=== PATIENT | female | born 1950 | race Caucasian/White ===

== ENCOUNTER 2019-07-02 06:37 | Emergency (ER) | payer OTHER ==
[2019-07-02 07:23] VITALS: BMI 25.9
--- NOTE | 2019-07-02 07:51 | PDOC ---
History of Present Illness - General Chief Complaint: Pain, Acute Stated Complaint: ABD PAIN/VOMITTING Time Seen by Provider: 07/02/19 07:43 History Source: Patient Exam Limitations: Language Barrier - History of Present Illness Initial Comments: Hx limited patient speaks [place]an - [employer] underliner number: [id number] Fabiola Begum is a 68 yo F w a hx of "nervous Colitis" who presents to the [facility] er bc last night she experienced 4 episodes of yellow and green vomiting, over ten episodes of diarrhea and a strong pain in the left side of her abdomen. First the diarrhea occurred, then the abdominal pain, and then the vomiting. She states her abdominal pain is rated 9/10. She describes the pain as a strong pain which started last night but still hurts. Patient endorses constant chills from the pain. She has not been able to eat or drink since last night. Denies fevers, chest pain, SOB, difficulty breathing, headache, dysuria, frequency, or urgency. PCP: Dr. Wolfe PSH: Tonsillectomy and appendectomy at a young age Social Hx: Denies smoking, drinking, or any other substance usage Allergies: NKA, NKDA Past History - Past Medical History Allergies/Adverse Reactions: Allergies Allergy/AdvReac Type Severity Reaction Status Date / Time No Known Allergies Allergy Verified 07/02/19 07:23 Home Medications: Ambulatory Orders Ciprofloxacin HCl [Cipro] 500 mg PO BID 7 Days #14 tablet 07/02/19 Famotidine [Pepcid -] 40 mg PO DAILY 07/02/19 Lipase/Protease/Amylase [Zenpep Dr 25,000 Unit Capsule] 1 tab PO TID 07/02/19 Omeprazole 20 mg PO DAILY 07/02/19 Simvastatin 20 mg PO HS 07/02/19 metroNIDAZOLE [Flagyl -] 500 mg PO TID 7 Days #21 tablet 07/02/19 COPD: No GI Disorders: Yes (gastritis) - Psycho Social/Smoking Cessation Hx Smoking History: Never smoked Review of Systems - Review of Systems Able to Perform ROS?: Yes Comments:: CONSTITUTIONAL: Present: Chills, generalized weakness, malaise, loss of appetite Absent: fever, chills, diaphoresis HEENT: Absent: rhinorrhea, nasal congestion, throat pain, throat swelling, difficulty swallowing, mouth swelling, ear pain, eye pain, visual Changes CARDIOVASCULAR: Absent: chest pain, syncope, palpitations, irregular heart rate, lightheadedness , peripheral edema RESPIRATORY: Absent: cough, shortness of breath, dyspnea with exertion, orthopnea, wheezing, stridor, hemoptysis GASTROINTESTINAL: Present: Abdominal pain, nausea, vomiting, diarrhea Absent: abdominal distension, constipation, melena, hematochezia GENITOURINARY: Absent: dysuria, frequency, urgency, hesitancy, hematuria, flank pain, genital pain MUSCULOSKELETAL: Absent: myalgia, arthralgia, joint swelling SKIN: Absent: rash, itching, pallor HEMATOLOGIC/IMMUNOLOGIC: Absent: easy bleeding, easy bruising, lymphadenopathy, frequent infections ENDOCRINE: Absent: unexplained weight gain, unexplained weight loss, heat intolerance, cold intolerance NEUROLOGIC: Absent: headache, focal weakness or paresthesias, dizziness, unsteady gait, seizure, mental status changes, bladder or bowel incontinence PSYCHIATRIC: Absent: anxiety, depression, suicidal or homicidal ideation, hallucinations. *Physical Exam - Vital Signs Last Vital Signs Temp Pulse Resp BP Pulse Ox 99.1 F 87 16 160/63 97 07/02/19 07:19 07/02/19 07:19 07/02/19 07:19 07/02/19 07:19 07/02/19 07:19 - Physical Exam GENERAL: Well developed, well nourished. Awake and alert. Mild distress. HEENT: Normocephalic, atraumatic. PERRLA, EOMI. No conjunctival pallor. Sclera are non- icteric. Moist mucous membranes. Oropharynx is clear. NECK: Supple. Full ROM. No JVD. CARDIOVASCULAR: Regular rate and rhythm. No murmurs, rubs, or gallops. Distal pulses are 2+ and symmetric. PULMONARY: No evidence of respiratory distress. Lungs clear to auscultation bilaterally. No wheezing, rales or rhonchi. ABDOMINAL: There is a significant amount of LLQ abdominal pain. Abdomen is overall soft and non-distended. No rebound or guarding. Normoactive bowel sounds. MUSCULOSKELETAL Normal range of motion at all joints. No bony deformities or tenderness. No CVA tenderness. EXTREMITIES: No cyanosis. No clubbing. No edema. No calf tenderness. SKIN: Warm and dry. Normal capillary refill. No rashes. No jaundice. NEUROLOGICAL: Alert, awake, appropriate. Normal speech. Gait is normal without ataxia. PSYCHIATRIC: Cooperative. Good eye contact. Appropriate mood and affect. ED Treatment Course - LABORATORY CBC & Chemistry Diagram: 07/02/19 09:00 07/02/19 09:00 Medical Decision Making - Medical Decision Making Fabiola Begum is a 68 yo F w a hx of "nervous Colitis" who presents to the [facility] er bc last night she experienced 4 episodes of yellow and green vomiting, over ten episodes of diarrhea and a strong pain in the left side of her abdomen. First the diarrhea occurred, then the abdominal pain, and then the vomiting. She states her abdominal pain is rated 9/10. She describes the pain as a strong pain which started last night but still hurts. Patient endorses constant chills from the pain. She has not been able to eat or drink since last night. Vital Signs Temp Pulse Resp BP Pulse Ox 99.1 F 87 16 160/63 97 07/02/19 07:19 07/02/19 07:19 07/02/19 07:19 07/02/19 07:19 07/02/19 07:19 DDx IBNLT: Diverticulitis vs colitis, UTI/Pylo, renal colic, electrolyte/ metabolic disturbance, peritonitis Plan: Labs, CTAP, IV hydration, analgesia, re-assess Labs: Leukocytosis w/ left shift, elevated BUN - Hydrated patient w/ 2L of NS CTAP: Diffuse left sided Colitis Re-assessment: Patient feels well supportive care. She is able to ambulate around the ED and is now eating and drinking. She is comfortable with the plan to take antibiotics for her colitis and follow up with a surgeon as an outpatient. - Cipro/Flagyl sent to pharmacy Disposition: Home with PCP and surgical FU Discharge - Discharge Information Problems reviewed: Yes Clinical Impression/Diagnosis: Left sided colitis Qualifiers: Digestive disease complication type: without complication Qualified Code(s): K51.50 - Left sided colitis without complications Condition: Stable Disposition: HOME - Admission No - Additional Discharge Information Prescriptions: Ciprofloxacin HCl [Cipro] 500 mg PO BID 7 Days #14 tablet metroNIDAZOLE [Flagyl -] 500 mg PO TID 7 Days #21 tablet - Follow up/Referral Referrals: Antonio Wolfe MD [Primary Care Provider] - Rafael Jurado MD [Staff Physician] - - Patient Discharge Instructions Patient Printed Discharge Instructions: DI for Colitis Additional Instructions: Please go to [facility]er the Antibiotics we are prescribing for you to take for the next 7 days. Please schedule a follow up appointment with both your primary care doctor and the surgeon we are referring you to to monitor your colitis. Come back to the ER immediately if your pain worsens, you start vomiting, have bloody diarrhea, cannot eat or drink, get a fever, have severe pain, or have any other new or worsening concerns. Please make sure to schedule a follow up with your primary doctor in the next 3 to 5 days to make sure you are feeling well, getting better, and being taken care of. Thank you for coming to the [facility] ER. We hope you feel better soon! Print Language: KOSOVAN - Post Discharge Activity
[2019-07-02] MEDS ORDERED: ACETAMINOPHEN 1000 MG/100 ML VIAL (NON FORMULARY) IVPB ONE (07:59)
[2019-07-02] MEDS ORDERED: FAMOTIDINE 20 MG/50 ML IVPB 20 MG/50 ML MG IVPB ONE ×2 (07:59→09:04)
[2019-07-02] MEDS ORDERED: SODIUM CHLORIDE 1,000 ML IV STA (07:59)
[2019-07-02] MEDS ORDERED: ONDANSETRON 4 MG/2 ML VIAL IVPUSH ONE (08:00)
[2019-07-02] MEDS ORDERED: ACETAMINOPHEN INJECTION 100 ML IVPB ONE (09:04)
[2019-07-02] MEDS ORDERED: ONDANSETRON 4 MG/2 ML VIAL ONE (09:04)
[2019-07-02 09:12] LABS: BASO % 0.4 % (0-2.0); EOS % 0.1 % (0-4.5); HEMATOCRIT 40.8 % (32.4-45.2); HEMOGLOBIN 13.7 GM/dL (10.7-15.3); LYMPH % 9.1 % (8-40); MCH 30.3 pg (25.7-33.7); MCHC 33.7 g/dl (32.0-36.0); NEUT % 84.4 % (42.8-82.8); PLATELET COUNT 224 K/MM3 (134-434); RBC 4.53 M/mm3 (3.60-5.2); RDW 14.4 % (11.6-15.6); WHITE BLOOD COUNT 14.4 K/mm3 (4.0-10.0)
[2019-07-02 09:29] VITALS: TEMP 98.1
[2019-07-02 09:44] LABS: BILIRUBIN,TOTAL 0.6 mg/dL (0.2-1); BLOOD UREA NITROGEN 24.7 mg/dL (7-18); CALCIUM 9.7 mg/dL (8.5-10.1); CREATININE 0.8 mg/dL (0.55-1.3); MAGNESIUM 2.2 mg/dL (1.8-2.4); PHOSPHOROUS 3.2 mg/dL (2.5-4.9); POTASSIUM 4.4 mmol/L (3.5-5.1); TOT PROT 7.9 g/dl (6.4-8.2)
[2019-07-02] MEDS ORDERED: SODIUM CHLORIDE 0.9% 500 ML INFUS.BAG IV ONE (09:55)
--- NOTE | 2019-07-02 11:18 | PDOC ---
Attending Attestation - Resident Resident Name: Earl Charlton - ED Attending Attestation I have performed the following: I have examined & evaluated the patient, The case was reviewed & discussed with the resident, I agree w/resident's findings & plan, Exceptions are as noted - HPI HPI: 07/02/19 11:52 68 years old past medical history significant for colitis presents to the emergency department with nausea vomiting diarrhea and left-sided abdominal pain Pain is persistent constant no exacerbating alleviating factors. - Physicial Exam PE: 07/02/19 11:52 Vitals: Triage Vital signs reviewed General Appearance: No acute distress, well nourished well developed, Cardiac: Regular rate and rhythym, no murmurs, no rubs, no gallops, Lungs: Clear to auscultation bilateral, good air movement bilaterally, Abdomen: Soft, non distended, normal bowel sounds diffuse left lower quadrant abdominal pain no rebound no guarding Extremities: Full range of motion to all extremities, no cyanosis, clubbing, or edema Skin: Warm and dry, no rashes or lesions, no rash, no petechiae Psych: Normal mood, normal affect - Medical Decision Making 07/02/19 11:53 Well-appearing no apparent distress CAT scan with evidence of colitis labs notable for an elevated white blood cell count patient no longer vomiting tolerating fluids at the bedside offered patient home with oral antibiotics versus admission patient would prefer to go home she feels comfortable her pain is well controlled she feels comfortable following up with her doctor and taking antibiotics at home She will return to the emergency department for any severe worsening symptoms or for any concerns
[2019-07-02 11:47] VITALS: BP 141/55; PULSE 67
--- NOTE | 2019-07-02 15:20 | EKG ---
Test Reason : Blood Pressure : / mmHG Vent. Rate : 073 BPM Atrial Rate : 073 BPM P-R Int : 140 ms QRS Dur : 080 ms QT Int : 388 ms P-R-T Axes : 034 044 027 degrees QTc Int : 427 ms NORMAL SINUS RHYTHM NORMAL ECG NO PREVIOUS ECGS AVAILABLE Confirmed by CODY MARRUFO MD ([id number]) on 07/02/2019 3:20:01 PM Referred By: Confirmed By:CODY MARRUFO MD
== END 2019-07-02 11:50 | disposition home or self-care (01) ==
LOC: JER 06:37
PROC: 3E033GC Introduction of Other Therapeutic Substance into Peripheral Vein, Percutaneous Approach (ICD-10-PCS; principal; 2019-07-02)
PROC: 3E033NZ Introduction of Analgesics, Hypnotics, Sedatives into Peripheral Vein, Percutaneous Approach (ICD-10-PCS; 2019-07-02)
PROC: 3E033GC Introduction of Other Therapeutic Substance into Peripheral Vein, Percutaneous Approach (ICD-10-PCS; 2019-07-02)
DX: K51.50 Left sided colitis without complications (principal)
CPT/HCPCS: 36415; 74177-TC; 80053; 83605; 83690; 83735; 84100; 85025; 93005; 93010; 96365; 96375; 99283-25; J0131; J7030; Q9967

== ENCOUNTER 2023-06-25 16:08 | Emergency (ER) | payer MEDICARE, OTHER ==
[2023-06-25 16:31] VITALS: TEMP 97.6; BMI 27.6
[2023-06-25] MEDS ORDERED: ACETAMINOPHEN 1000 MG/100 ML BAG IVPB ONE (17:28)
[2023-06-25] MEDS ORDERED: SODIUM CHLORIDE 1,000 ML IV STA (17:28)
[2023-06-25 18:24] LABS: HEMATOCRIT 41.5 % (32.4-45.2); HEMOGLOBIN 13.6 GM/dL (10.7-15.3); MCH 29.8 pg (25.7-33.7); MCHC 32.9 g/dl (32.0-36.0); MEAN CELL VOLUME 90.7 fl (80-96); MEAN PLT VOLUME 11.5 fl (7.5-11.1); PLATELET COUNT 223 10^3/uL (134-434); RBC 4.58 M/mm3 (3.60-5.2); RDW 14.6 % (11.6-15.6)
[2023-06-25] MEDS ORDERED: ACETAMINOPHEN INJECTION 100 ML IVPB ONE (18:28)
[2023-06-25 18:33] LABS: INR 1.08 (0.83-1.09); PROTHROMBIN TIME (PATIENT) 12.5 SEC (9.7-13.0)
[2023-06-25 18:36] LABS: ACTIVATED PTT 29.7 SECONDS (25.2-36.5)
[2023-06-25 18:42] LABS: POTASSIUM 4.5 mmol/L (3.5-5.1)
[2023-06-25 18:44] LABS: CALCIUM 10.2 mg/dL (8.5-10.1)
[2023-06-25 18:45] LABS: BLOOD UREA NITROGEN 16.8 mg/dL (7-18)
[2023-06-25 18:50] LABS: BILIRUBIN,TOTAL 0.5 mg/dL (0.2-1); TOT PROT 7.7 g/dl (6.4-8.2)
[2023-06-25] MEDS ORDERED: LIDOCAINE 5% TOPICAL PATCH TP ONE (21:55)
[2023-06-25] MEDS ORDERED: LIDOCAINE PATCH REMOVAL MC SCH (22:00)
[2023-06-25] MEDS ORDERED: LIDOCAINE 4% PATCH TP ONE (22:24)
[2023-06-25 22:31] VITALS: BP 150/70; PULSE 104; RESP 18
== END 2023-06-25 22:37 | disposition home or self-care (01) ==
LOC: JER 16:08
PROC: 3E033NZ Introduction of Analgesics, Hypnotics, Sedatives into Peripheral Vein, Percutaneous Approach (ICD-10-PCS; principal; 2023-06-25)
PROC: 3E0337Z Introduction of Electrolytic and Water Balance Substance into Peripheral Vein, Percutaneous Approach (ICD-10-PCS; 2023-06-25)
DX: R51.9 Headache, unspecified (principal); M54.2 Cervicalgia; M54.9 Dorsalgia, unspecified; M25.512 Pain in left shoulder; M25.561 Pain in right knee; R50.9 Fever, unspecified; R42 Dizziness and giddiness; R11.0 Nausea; V00-Y99 External causes of morbidity; Y93.01 Activity, walking, marching and hiking; Z20.822 Contact with and (suspected) exposure to COVID-19
CPT/HCPCS: 0241U-QW; 36415; 71045-TC-FY; 72170-TC-FY; 73030-TC-LT-FY; 73562-TC-RT-FY; 80053; 84443; 84484; 85027; 85610; 85730; 86850; 86900; 86901; 93005; 93010; 96361; 96374; 99285-25